=== PATIENT | male | born 1950 | race Caucasian/White ===

== ENCOUNTER → 2020-10-12 | Outpatient (CLI) | payer MEDICARE, OTHER ==
[~2020-10-12] MED LIST: ASPIRIN EC81 MG PO; CENTRUM SILVER1 EAC1 PO; LISINOPRIL-HCT1 EAC2 PO; MELATONIN10 M2 PO; MELOXICAM15 MG PO; MIRALAX17 GM PO
== END ==
LOC: KOH-I 15:39
DX: M54.5 Low back pain (principal); M51.37 Other intervertebral disc degeneration, lumbosacral region; M48.07 Spinal stenosis, lumbosacral region; M43.16 Spondylolisthesis, lumbar region
CPT/HCPCS: 72100